=== PATIENT | female | born 2000 | race Caucasian/White ===

== ENCOUNTER 2024-05-21 17:30 | Inpatient (IN) | payer OTHER, MEDICAID, SELFPAY ==
[2024-05-21] VITALS (50 sets, daily range): BP systolic 107–141; BP diastolic 60–82; PULSE 59–100; RESP 14–18; TEMP 36.2–36.9; O2SAT 86–100; BMI 23.6
--- NOTE | 2024-05-21 16:52 | PCM.HP.OB ---
HPI - General General Date of Admission: 05/21/24 HPI Narrative LUPE KUNZ, is a 23 F at 38 weeks gestation who presents with contractions. Patient stated she started estefania yesterday and contractions continue to increase in strength and frequency. She felt a large gush of fluid and saw vaginal bleeding. Maternal Data Information BASSAM Calculator Estimated Delivery Date Method Current WG Current Estimate 06/04/24 Manual 38w 0d PFSH PFSH Medical History (Updated 05/21/24 @ 20:18 by Nasrin Sparks CNM) Left ovarian cyst History of pre-term labor Allergy/AdvReac Type Severity Reaction Status Date / Time camphor (From Allergy mouth sores Verified 05/21/24 17:47 Inflatherm(diclofenac-menthol)) diclofenac (From Allergy mouth sores Verified 05/21/24 17:47 Inflatherm(diclofenac-menthol)) doxycycline Allergy Rash Verified 05/21/24 17:47 menthol (From Allergy mouth sores Verified 05/21/24 17:47 Inflatherm(diclofenac-menthol)) NST FHR Rate Baby A Baseline: 135 Variability:: Moderate Accelerations:: 15 x 15 Decelerations:: None NST Reactive:: Yes FHR Category:: Category I Uterine Activity:: 1-3 minutes and palpate moderate and relaxed in between ROS Eyes Eyes: Denies blurry vision, change in vision or spots in vision ENT HEENT: Denies dizziness or headache(s) Cardiovascular Cardiovascular: Denies abdominal pain, chest pain or dyspnea Respiratory/Chest Respiratory/Chest: Denies cough, dyspnea, shortness of breath at rest or shortness of breath with exertion Gastrointestinal Gastrointestinal: Denies abdominal pain, diarrhea or vomiting Genitourinary Genitourinary: Denies change in urinary stream, difficulty urinating or dysuria Musculoskeletal Musculoskeletal: Reports none Integumentary Integumentary: Denies rash Neurologic Neurologic: Denies dizziness, headache(s), memory loss or weakness Psychiatric Psychiatric: Reports none Physical Exam Const alert, oriented x3 and no apparent distress General Appearance: cooperative Orientation / Consciousness: awake Exam Limitations: no limitations HEENT normocephalic Head and Scalp: normal to inspection Eyes General Eye: normal appearance of both eyes Neck full ROM and no lymphadenopathy Lymph Lymphatic: no lymphadenopathy noted Chest inspection of chest normal Resp normal respiratory effort, normal air movement and clear to auscultation bilaterally Effort and Inspection: able to speak in complete sentences and symmetric chest movement Cardio regular rate and regular rhythm GI normal to inspection, nondistended, normoactive bowel sounds Manual OB Exam: presentation cephalic Back/Spine normal ROM Extremity full ROM and no calf tenderness Skin no rashes or lesions noted General Skin Exam: no breakdown Neuro oriented x3 and CN's II-XII intact bilaterally Psych mental status grossly normal and thought process normal Labs Labs Labs: Blood Type A NEGATIVE Antibody Screen POSITIVE Hct 35.1 % (37-47) L Hgb 11.9 g/dL (12.0-15.0) L Syphilis Total Ab Pending Assessment & Plan (1) 38 weeks gestation of : (2) Spontaneous onset of labor: (3) Uterine contractions: (4) History of delivery: PLAN: Plan CE- 3.5-4cm 90/-1 Normal bloody show GBS negative Admit to labor and delivery Routine labs Epidural when indicated Recent growth US on 04/16/24- EFW 15%, AC 16% Dr. Howell notified of admission and is collaborating physician
[2024-05-21] MEDS: Lactated Ringers 1,000 ML 999 ML IV (17:50)
[2024-05-21 18:37] LABS: Absolute Lymphocyte Count 1.85 X10^3/uL (0.83-4.51); Absolute Neutrophil Count 11.5 X10^3/uL (2.0-7.7); Basophil# 0.05 X10^3/uL; Basophil% 0.4 % (0-1); Eosinophil# 0.02 X10^3/uL; Eosinophils% 0.1 % (0-5); Hematocrit 35.1 % (37-47); Hemoglobin 11.9 g/dL (12.0-15.0); Lymphocyte # 1.85 X10^3/ul (0.83-4.51); Lymphocyte % 13.1 % (19-41); Mean Corp Hgb Conc 33.9 g/dL (32-36); Mean Corpuscular Hgb 28.1 pg (27.0-32.0); Mean Platelet Vol. 11.7 fl (6.2-12.0); Monocyte# 0.75 X10^3/uL; Monocyte% 5.3 % (0-10); NRBC Flagged by Analyzer 0 % (0-5); Neutrophil # 11.45 X10^3/uL (2.7-7.7); Neutrophil % 80.7 % (47-70); Platelet Count 214 K/mm3 (150-450); RBC Distribution Width CV 13.5 % (11.6-14.6); RBC Distribution Width SD 40.2 fl (35.1-43.9); Red Blood Count 4.23 M/mm3 (4.2-5.4); White Blood Count 14.2 K/mm3 (4.4-11.0)
[2024-05-21] MEDS: fentaNYL-bupivacaine (epidural) 100 ML BAG EPIDURAL (20:16)
[2024-05-21] MEDS: Oxytocin 15 Units/NS 250ml 15 UNITS/250 ML IV.SOLN 334 UNITS IV (21:22)
--- NOTE | 2024-05-21 21:33 | EX.PCM.OBRPT ---
Assessment & Plan (1) (spontaneous vaginal delivery): (2) Care and examination of lactating mother: Maternal Data Information BASSAM Calculator Estimated Delivery Date Method Current WG Current Estimate 06/04/24 Manual 38w 0d Vaginal Delivery Maternal Presentation Maternal Presentation: at 38 weeks gestation that presents with spontaneous onset of labor. Type of Induction: Amniotomy (augmentation) Operative Information Date of Procedure: 05/21/24 Pre-Operative Diagnosis: Term gestation, Spontaneous onset of labor Post-Operative Diagnosis: , live male Surgery / Procedure Performed: Spontaneous Vaginal Delivery Type of Anesthesia: Epidural Estimated Blood Loss: 300 Time of Delivery: 21:20 Findings Description of Procedure: Patient progressed to complete dilation. With good maternal effort, head delivered followed by anterior shoulder and remainder of infant body without any force, delay or traction. Vigorous male was delivered atraumatically and placed on maternal abdomen. Loose cord around body easily reduced. Pitocin IV started for active management of the third stage of labor. 3 vessel cord clamped and cut after delay and placed immediately skin to skin with patient. Placenta delivered spontaneously and intact. After inspection, it was noted there were no vaginal or perineal lacerations. Vaginal sweep performed. Fundus is firm and bleeding hemostatic. Patient and infant bonding well at this time. Dr. Howell notified of delivery. Routine post orders placed. Presentation: Vertex Time of Membrane Rupture: 2052 Amniotic Fluid Description: Clear Placenta Disposition: [facility] Cord Vessel Description: 3 Vessels Cord Entanglement: - (Cord around body x1 loose) Nuchal Cord Compression: Without compression (1 minute): 8 (5 minute): 9 Delayed Cord Clamping: Yes Post Vaginal Delivery Medications Given After Delivery: IV Pitocin Episiotomy Description: None Laceration: None Complication Complications: None
[2024-05-21] MEDS: Oxytocin 15 Units/NS 250ml 15 UNITS/250 ML IV.SOLN 83 UNITS IV (21:53)
[2024-05-22] VITALS (11 sets, daily range): BP systolic 116–121; BP diastolic 55–76; PULSE 71–90; RESP 16; TEMP 36.5–36.9; O2SAT 98–99
[2024-05-22] MEDS: Acetaminophen 500 MG Tablet 1000 MG PO (04:25)
[2024-05-22] MEDS: Naproxen 500 MG Tablet PO ×2 (10:48→18:26)
--- NOTE | 2024-05-22 13:08 | PCM.PN.OB ---
Subjective Subjective Doing well per patient and nursing staff. Ambulating and taking PO without difficulty. Voiding and passing flatus. Pain controlled. , services for assistance. Denies headache, visual changes, chest pain, shortness of breath, leg pain or increased bleeding. Lochia normal. Objective Data Objective Data Vital Signs: Vital Signs Temp Pulse Resp BP Pulse Ox O2 Del Method 98.4 F 82 16 118/55 L 99 Room Air 05/22/24 12:40 05/22/24 12:40 05/22/24 12:40 05/22/24 12:40 05/22/24 12:40 05/22/24 12:40 Oxygen Delivery Method Room Air Weight: 145 lb 15.136 oz Body Mass Index (BMI) 23.6 Intake & Output: Intake and Output for Last 24 Hours 05/20/24 05/21/24 05/22/24 23:59 23:59 23:59 Intake Total 1167 / 1167 250 / 250 Output Total 300 / 300 800 / 800 Balance 867 / 867 -550 / -550 Lab / Micro Data 05/21/24 18:15 Labs: Laboratory Results - last 24 hr 05/21/24 18:15: WBC 14.2 H, RBC 4.23, Hgb 11.9 L, Hct 35.1 L, MCV 83.0, MCH 28.1, MCHC 33.9, RDW Std Deviation 40.2, RDW Coeff of Tita 13.5, Plt Count 214, MPV 11.7, Immature Gran % (Auto) 0.400, Neut % (Auto) 80.7 H, Lymph % (Auto) 13.1 L, Sargent % (Auto) 5.3, Eos % (Auto) 0.1, Baso % (Auto) 0.4, Absolute Neuts (auto) 11.5 H, Absolute Lymphs (auto) 1.85, Nucleated RBC % 0, Blood Type A NEGATIVE, Antibody Screen POSITIVE, Antibody Identification ANTI-D Physical Exam Const alert and oriented x3 General Appearance: cooperative Orientation / Consciousness: awake, oriented to person, oriented to place and oriented to time Exam Limitations: no limitations HEENT normocephalic Head and Scalp: normal to inspection, normocephalic and atraumatic Face and Sinus: normal facial exam Eyes General Eye: normal appearance of both eyes Neck full ROM Chest Chest: symmetrical chest wall rise Resp normal respiratory effort and normal air movement Auscultation: clear to auscultation bilaterally Cardio regular rate, regular rhythm, S1 normal heart sound, S2 normal heart sound, no murmurs, no rub, no gallops and no clicks GI normal to inspection, nondistended, normoactive bowel sounds and non-tender appearance of the vagina normal Bladder / Kidney Exam: no CVA tenderness Back/Spine normal ROM Extremity normal to inspection and full ROM Skin no rashes or lesions noted Neuro oriented x3, CN's II-XII intact bilaterally and moves all extremities Sensorium / Orientation: awake, alert and oriented to person Motor Exam: clonus absent Deep Tendon Reflexes: Rt Patellar (L4): 2+ and Lt Patellar (L4): 2+ Assessment & Plan (1) Care and examination of lactating mother: (2) (spontaneous vaginal delivery): PLAN: Plan 1) Routine care, PPD #2 2) Vitals signs stable 3) Pain controlled 4) , services PRN 5) D/C home 6) Follow up in 2 weeks and 6 weeks
[2024-05-22 15:50] LABS: Syphilis Antibodies Non-reactive
[2024-05-23 02:15] VITALS: BP 121/65; BP 150/78; PULSE 70; RESP 16; TEMP 37.2
[2024-05-23 02:16] VITALS: BP 121/65; PULSE 77
[2024-05-23 08:40] VITALS: BP 125/83; PULSE 92
[2024-05-23 08:55] VITALS: BP 125/83; PULSE 69; RESP 16; TEMP 37.1; O2SAT 100
--- NOTE | 2024-05-23 12:14 | PCM.PN.OB ---
Subjective Subjective Doing well per patient and nursing staff. Ambulating and taking PO without difficulty. Voiding and passing flatus. Pain controlled. , services for assistance. Denies headache, visual changes, chest pain, shortness of breath, leg pain or increased bleeding. Lochia normal. Objective Data Objective Data Vital Signs: Vital Signs Temp Pulse Resp BP Pulse Ox O2 Del Method 98.8 F 69 16 125/83 H 100 Room Air 05/23/24 08:55 05/23/24 08:55 05/23/24 08:55 05/23/24 08:55 05/23/24 08:55 05/23/24 08:55 Oxygen Delivery Method Room Air Weight: 145 lb 15.136 oz Body Mass Index (BMI) 23.6 Intake & Output: Intake and Output for Last 24 Hours 05/21/24 05/22/24 05/23/24 23:59 23:59 23:59 Intake Total 1167 / 1167 250 / 250 Output Total 300 / 300 800 / 800 Balance 867 / 867 -550 / -550 Lab / Micro Data 05/21/24 18:15 Labs: Laboratory Results - last 24 hr 05/21/24 18:15: Syphilis Total Ab Non-reactive Physical Exam Const alert and oriented x3 General Appearance: cooperative Orientation / Consciousness: awake, oriented to person, oriented to place and oriented to time Exam Limitations: no limitations HEENT normocephalic Head and Scalp: normal to inspection, normocephalic and atraumatic Face and Sinus: normal facial exam Eyes General Eye: normal appearance of both eyes Neck full ROM Chest Chest: symmetrical chest wall rise Resp normal respiratory effort and normal air movement Auscultation: clear to auscultation bilaterally Cardio regular rate, regular rhythm, S1 normal heart sound, S2 normal heart sound, no murmurs, no rub, no gallops and no clicks GI normal to inspection, nondistended, normoactive bowel sounds and non-tender appearance of the vagina normal Bladder / Kidney Exam: no CVA tenderness Back/Spine normal ROM Extremity normal to inspection and full ROM Skin no rashes or lesions noted Neuro oriented x3, CN's II-XII intact bilaterally and moves all extremities Sensorium / Orientation: awake, alert and oriented to person Motor Exam: clonus absent Deep Tendon Reflexes: Rt Patellar (L4): 2+ and Lt Patellar (L4): 2+ Assessment & Plan (1) Care and examination of lactating mother: (2) (spontaneous vaginal delivery): PLAN: Plan 1) Routine care, PPD #2 2) Vitals signs stable 3) Pain controlled 4) , services PRN 5) D/C home 6) Follow up in 2 weeks and 6 weeks
--- NOTE | 2024-05-23 12:15 | PCM.DC.SUM ---
Providers Date of Admission: 05/21/24 Primary Care Physician: Dr. Annette House MD Reason For Visit: LABOR AND DELIVERY Diagnosis Discharge Diagnosis (1) Care and examination of lactating mother: Status: Acute Code(s): Z39.1 - Encounter for care and examination of lactating mother (2) (spontaneous vaginal delivery): Status: Acute Code(s): O80 - Encounter for full-term uncomplicated delivery Plan 1) Routine care, PPD #2 2) Vitals signs stable 3) Pain controlled 4) , services PRN 5) D/C home 6) Follow up in 2 weeks and 6 weeks Medications at Discharge Home Medications vit no.95-ferrous fumarate 28 mg-folic acid 800 mcg tablet () 1 tab PO DAILY 05/21/24 acetaminophen 500 mg tablet 1,000 mg (2 x 500 mg) PO Q6H PRN PRN Pain 1-10 Or Fever #0 tabs 05/23/24 naproxen 500 mg tablet 500 mg PO Q8H PRN PRN Pain Score 1-10 #0 tabs 05/23/24 Hospital Course Summary of Care Provided Minutes Spent on Discharge: 15 Weight / BMI Weight Weight: 145 lb 15.136 oz Body Mass Index (BMI) 23.6 ABG / Lab / Microbiology Data 05/21/24 18:15 Laboratory: Laboratory Results - last 24 hr 05/21/24 18:15: Syphilis Total Ab Non-reactive D/C Instructions Discharge Diet: No restrictions Discharge Activity: Return to Normal Activity, May Drive, May Shower and May Take a Tub Bath May resume sexual activity in: 6 weeks Weight Bearing Status: Full weight bearing Call your doctor if you observe: Fever of 101 or Higher, Inability to urinate, Using more than 1 pad per hour, Shortness of breath, Chest pain, Increased palpitations (irregular heartbeat), Calf discomfort and Uncontrolled pain Please Follow Up With: Adriana Ramos CNM When: 2 week virtual visit and 6 week visit Meaningful Use Info Meaningful Use Meaningful Use Diagnoses (Choose all that apply): None applicable Ischemic Stroke Statin Dosing Therapy Reference: STATIN DOSE THERAPY REFERENCE: * Patients > 75 years receive moderate or high dose statin therapy. * Patients 75 years or YOUNGER should receive HIGH intensity statin dose unless contraindicated. You will be required to document reason for non-treatment if statin daily dose does not meet guidelines. HIGH DOSE STATIN THERAPY DAILY Atorvastatin > than or = to 40 mg Rosuvastatin > than or = to 20 mg Amlodipine + Atorvastatin > than or = to 2.5/40 mg Ezetimibe + Simvastatin 10/80 mg Simvastatin 80mg Discharge Plan Admission Admit Date/Time: 05/21/24 17:30 Primary Reason for Your Visit: Vaginal Attending Provider: Nasrin Sparks Primary Care Provider: Annette House Discharge Orders/Prescriptions Prescriptions: New acetaminophen 500 mg Tablet 1,000 mg PO Q6H PRN PRN (Reason: Pain 1-10 Or Fever) Qty: 0 0RF naproxen 500 mg Tablet 500 mg PO Q8H PRN PRN (Reason: Pain Score 1-10) Qty: 0 0RF Continued PNV cmb#95-ferrous fumarate-FA [] 28 mg iron- 800 mcg tablet 1 tab PO DAILY Referrals / Follow Up: Annette House MD [Primary Care Provider] - Disposition Disposition (needs filled in before D/C Order can be placed): Home, Self Care
[2024-05-23 13:39] VITALS: BP 127/83; PULSE 83; TEMP 36.8
== END 2024-05-23 14:40 | disposition home or self-care (01) | DRG 807 ==
LOC: WPOUT 17:33 → WP 17:33
PROVIDERS: Admitting Provider Advanced Practice Midwife; PCP Family Medicine; Referring Provider Advanced Practice Midwife; Visit Provider Advanced Practice Midwife
DX: O69.81X0 Labor and delivery complicated by cord around neck, without compression, not applicable or unspecified (principal); Z37.0 Single live birth; Z3A.38 38 weeks gestation of pregnancy; Z87.59 Personal history of other complications of pregnancy, childbirth and the puerperium
CPT/HCPCS: 59025; 59050; 85025; 86780; 86850; 86870; 86900; 86901; 99221; J7120; G0378